=== PATIENT | female | born 1980 | race Caucasian/White ===

== ENCOUNTER 2017-05-01 21:57 | Emergency (ER) | payer MEDICAID ==
[2017-05-01 23:03] LABS: Hematocrit 36.6 % (37.0-47.0); Hemoglobin 12.1 gm/dL (12.5-16.0); Mean Cell Volume 83.9 fl (78-100); Mean Corpuscular Hemoglobin 27.8 pg (27-31); Mean Corpuscular Hgb Conc 33.1 g/dl (32-36); Mean Platelet Volume 8.4 fl (6.0-9.5); Neutrophil # 5.6 K/mm3 (1.3-6.0); Neutrophil % 61.4 % (42-75.0); Platelet Count 232 K/mm3 (150-450); Red Blood Count 4.36 M/mm3 (4.2-5.4); Red Cell Distribution Width 12.4 % (11.5-14.0); White Blood Count 9.1 K/mm3 (4.0-10.5)
--- NOTE | 2017-05-01 23:03 | ERNOTE ---
Time Seen by Provider: 05/01/17 22:46 Stated Complaint: SORE THROAT Presenting Symptoms:: cough, sore throat, runny nose Source: patient Exam Limitations: no limitations Immunizations: IMMUNIZATION HX Immunizations Up to Date Yes History of Influenza Vaccine No Hx Pneumococcal Vaccination No Allergies/Adverse Reactions: Allergies clindamycin Allergy (Intermediate, Verified 05/25/16 16:09) Swelling of Tongue hydrocodone Allergy (Intermediate, Verified 05/25/16 16:09) Swelling of Tongue Sulfa (Sulfonamide Antibiotics) Allergy (Intermediate, Verified 05/25/16 16:09) Anaphylaxis ciprofloxacin [From Cipro] Allergy (Unknown, Verified 05/25/16 16:09) ciprofloxacin HCl [From Cipro] Allergy (Unknown, Verified 05/25/16 16:09) morphine Allergy (Unknown, Verified 05/25/16 16:09) Home Medications: HOME MEDICATIONS Cetirizine HCl [Zyrtec] 10 mg PO DAILY 03/08/16 [Last Taken 03/08/16] Cyanocobalamin (Vitamin B-12) [Vitamin B-12] 500 mcg PO DAILY 03/08/16 [Last Taken 03/08/16] Lansoprazole [Prevacid] 30 mg PO DAILY PRN 03/08/16 [Last Taken 03/08/16] Lorazepam [Ativan] 2 mg PO HS 03/08/16 [Last Taken Unknown] Ibuprofen [Motrin] 800 mg PO TID PRN #60 tab 05/25/16 [Last Taken Unknown] oxyCODONE HCL/ACETAMINOPHEN [Percocet 5 MG/325 MG] 1 tab PO Q4H PRN #10 tab 01/03 [Last Taken Unknown] DULoxetine HCL [Cymbalta] 20 mg PO HS 05/01/17 [Last Taken Unknown] Methylprednisolone [Medrol Dosepak] 4 mg PO DAILY #21 tab.ds.pk 05/01/17 [Last Taken Unknown] - History of Present Ilness Narrative: Pt has been dealing with her "allergy symptoms" for about 5 weeks. She has been using zyrtec, nasonex and home remedies such as nasal flushes and essential oils without improvement. She had her PCP call in an rx of augmentin 3 days ago but still has not improved. Timing: getting worse Severity: moderate Frequency/Possible Cause: Reports: frequent episodes, allergen exposure Modifying Factors - Improves: Reports: nothing Modifying Factors - Worsens: Reports: activity, cold Associated Symptoms: Reports: sore throat Prior Treatment: Reports: treated by physician - (not seen), currently on antibiotics Review of Systems - Review of Systems Constitutional: Present: recent illness, fever - 3-4 days ago but not for the past 2-3 days EYE: Present: no symptoms reported ENT: Present: See HPI Respiratory: Present: cough. Absent: shortness of breath Cardiology: Absent: chest pain Gastrointestinal/Abdominal: Present: no symptoms reported Genitourinary: Present: no symptoms reported Musculoskeletal: Absent: muscle pain, muscle stiffness Skin: Absent: rash Neurological: Present: no symptoms reported Endocrine: Present: no symptoms reported Hematologic/Lymphatic: Present: no symptoms reported Psych: Present: no symptoms reported - Patient's Past Medical History Patient History - Medical: Anxiety, Kidney stone Patient History - Cardiac/Respiratory: No pertinent hx Patient History - Cancer: No Hx of Cancer Patient History - Surgical Procedures: D & C, Tubal Ligation, T & A, Other Patient History - Other: None - Family History Mother Family History - Medical: Osteoporosis, Other Family History - Cardiac/Respiratory: Other Father Family History - Cardiac/Respiratory: Hypertension, Hyperlipidemia - Social History Living Situations: home Abuse History: No History of abuse Psych History: No pertinent hx Does anyone smoke in the home?: No Smoking Status: Former smoker Have you smoked in the past 12 months: No Do you dip or chew tobacco: No Alcohol Use: occasionally Drug Use: none - Immunizations Immunizations Up to Date: Yes Hx Pneumococcal Vaccination: No History of Influenza Vaccine: No Physical Exam - Physical Exam General Appearance: Present: wd/wn, alert, no apparent distress Head Exam: Present: normal inspection, no evidence of injury Eye Exam: Normal inspection: bilateral Ears, Nose, Throat: Present: nasal congestion - and erythema, sinus pain/ drainage - mucosal edema Neck: Present: normal inspection, nontender Respiratory: Present: no respiratory distress, rhonchi - RLL Cardiovascular/Chest: Present: regular rate, rhythm, no murmur ED Progress - Vital Signs Vital Signs: Vital Signs 05/01/17 22:03 Temperature 36.9 C Pulse Rate 92 Respiratory 18 Rate Blood Pressure 132/82 O2 Sat by Pulse 96 Oximetry - X-Ray X-Ray #1 X-Ray: chest Interpretation: Interp. by me X-ray Comments: No infiltrate or effusion. - Progress/Reassessment Chief Complaint: Upper Respiratory Symptoms Departure - Departure Clinical Impression: Sinusitis Qualifiers: Sinusitis location: maxillary Chronicity: acute Recurrence: recurrent Qualified Code(s): J01.01 - Acute recurrent maxillary sinusitis Disposition: Home Follow Up Needed Condition: Good Instructions: Sinusitis, Adult, [id number] Additional Instructions: See your regular doctor in 1-2 weeks to follow up on your sinus infection Referrals: Charla Jalloh FNP [Primary Care Provider] - Prescriptions: Methylprednisolone [Medrol Dosepak] 4 mg PO DAILY #21 tab.ds.pk
[2017-05-01 23:19] VITALS: BP 110/61
[2017-05-01] MEDS ORDERED: LIDOCAINE HCL 20 ML VIAL ONE (23:45)
== END 2017-05-01 23:58 | disposition home or self-care (01) ==
LOC: ER 21:57
DX: J01.01 Acute recurrent maxillary sinusitis (principal); Z87.442 Personal history of urinary calculi; F41.9 Anxiety disorder, unspecified; Z87.891 Personal history of nicotine dependence